=== PATIENT | female | born 1995 | race Caucasian/White ===

== ENCOUNTER → 2018-06-13 15:59 | Outpatient (CLI) | payer OTHER, SELFPAY ==
[2018-06-17 20:06] LABS: Egg, Whole <0.10 kU/L (Class 0); Garlic <0.10 kU/L (Class 0); Gluten <0.10 kU/L (Class 0); Yeast <0.10 kU/L (Class 0)
[2018-06-18 11:20] LABS: Banana <0.10 kU/L (Class 0); Wheat <0.10 kU/L (Class 0)
== END ==
PROVIDERS: Family Provider Family Medicine; PCP Family Medicine; Visit Provider Otolaryngology Otolaryngology/Facial Plastic Surgery
DX: T78.40XA Allergy, unspecified, initial encounter (principal)
CPT/HCPCS: 36415; 86003

== ENCOUNTER 2019-01-21 08:52 | Emergency (ER) | payer OTHER, SELFPAY ==
[2019-01-21 08:53] VITALS: BP 152/111; PULSE 89; RESP 18; TEMP 36.6; O2SAT 98; BMI 26.2
--- NOTE | 2019-01-21 09:12 | CT_ITS ---
STUDY: CT ABDOMEN AND PELVIS WITHOUT CONTRAST REASON FOR EXAM: Female, 23 years old. Right-sided pain RADIATION DOSAGE (If Supplied By Facility): CTDIvol = ( 8.42 ) mGy, DLP = ( 378.70 ) mGycm TECHNIQUE: Transaxial images were obtained from the dome of the diaphragm to the symphysis pubis without oral contrast, and without intravenous contrast. Sagittal and coronal images were reconstructed. Individualized dose optimization techniques were used for this CT. COMPARISON: None. FINDINGS: Lack of intravenous contrast limits evaluation of abdominal and pelvic organs. The visualized lung bases are unremarkable. The visualized portions of the heart are within normal limits. Normal liver. Normal gallbladder and extrahepatic biliary system. Normal spleen. Normal pancreas. Normal bilateral adrenal glands. Normal right kidney. Normal left kidney. Normal visualized stomach. Normal small intestine. Normal colon. The appendix is visualized and appears normal. Normal abdominal aorta. Normal inferior vena cava. Normal retroperitoneum. Normal urinary bladder. Normal abdominal wall. Normal osseous structures. CT/Abdomen/Pelvis without Cont IMPRESSION: Normal unenhanced CT of the abdomen and pelvis. Normal appendix. Electronically Signed: Jacob Perez, at 10:37 EDT Tel , Service support ,
--- NOTE | 2019-01-21 09:13 | ED.VISSUMM ---
- ER Visit Summary Date of Service: 01/21/19 Chief Complaint: Abdominal pain History of Present Illness: The patient is a 23 F who presents the emergency department with a right-sided abdominal pain. Patient states that she woke at 630 and went to get out of bed and noticed the pain on the right upper abdomen flank that radiated slightly inferior. She states the pain is been waxing and waning. No nausea vomiting. She had a normal bowel movement last night. No urinary symptoms. There is a family history of both gallstones and kidney stones. No fevers. Physical Examination: Afebrile vital signs are stable Gen: Well-nourished well-developed Head: Normocephalic atraumatic Eyes: Perrl EOMI ENT: TMs clear no rhinorrhea moist mucous membranes Neck: Supple no lymphadenopathy no JVD nontender CVS: Regular rate rhythm no murmurs normal S1-S2 Respiratory: No distress clear to auscultation bilaterally chest nontender Abdomen: Soft nontender nondistended normal bowel sounds no masses Back: Nontender Extremity: Nontender no edema Skin: Normal color no rash Neuro: alert orientated ?3 CN II-XII intact normal strength sensation reflexes gait cerebellar Psych: Normal affect normal mood Test Results: CBC CMP lipase normal. Urinalysis negative. test negative. CT down pelvis did not demonstrate any obvious cause for the patient's pain. Emergency Department Course and Treatment: IV was established labs are drawn. Patient received Toradol for pain. Patient will be discharged home with return instructions. Follow-up 24 hours if not improved. Impression: 1. Acute abdominal pain This note was generated with [employer] dictation software. It may contain incorrect words, spelling, and punctuation that were not noted in review of the chart prior to signing ED Disposition - Plan for ED Patient: Disposition: Home or Assisted Living Instructions: ED Abdominal Pain Unkn Cause Referrals: Kleber Sosa III, MD [Primary Care Provider] - (In 1 day if continued symptoms or return to emergency department)
[2019-01-21 09:33] LABS: Absolute Lymphocyte Count 1.45 X10^3/ul (0.83-4.51); Absolute Neutrophil Count 3.6 X10^3/uL (2.0-7.7); Basophil# 0.02 X10^3/uL; Basophil% 0.4 % (0-1); Eosinophil# 0.08 X10^3/uL; Eosinophils% 1.4 % (0-5); Hematocrit 41.3 % (37-47); Hemoglobin 13.4 g/dl (12.0-15.0); Lymphocyte # 1.45 X10^3/ul (4.0); Lymphocyte % 26.2 % (19-41); Mean Corp Hgb Conc 32.4 g/gl (32-36); Mean Corpuscular Hgb 27.9 pg (27.0-32.0); Mean Corpuscular Volume 85.9 fL (81-99); Mean Platelet Vol. 10.9 fl (6.2-12.0); Monocyte# 0.35 X10^3/uL; Monocyte% 6.3 % (0-10); Neutrophil # 3.62 X10^3/uL (2.7-7.7); Neutrophil % 65.5 % (47-70); Platelet Count 208 K/mm3 (150-450); RBC Distribution Width CV 12.6 % (11.6-14.6); RBC Distribution Width SD 39.5 fl (35.1-43.9); Red Blood Count 4.81 M/mm3 (4.2-5.4); White Blood Count 5.5 K/mm3 (4.4-11.0)
[2019-01-21 09:35] LABS: POSITIVE COUNT NO; POSITIVE DIFFERENTIAL NO; POSITIVE MORPHOLOGY NO
[2019-01-21] MEDS: Ketorolac 30 MG/ML Syringe IV (09:37)
[2019-01-21 09:46] LABS: Color, Urine Yellow (Yellow); Glucose, Dipstick Normal (Normal); Ketone-Dipstick 5 mg/dl (Negative); Leukocyte Esterase-Dipstick 25 /ul (Negative); Nitrite-Dipstick Negative (Negative); Occult Blood-Urine 10 /ul (Negative); Protein-Dipstick 15 mg/dl (Negative); Urine Bilirubin Dipstick Negative (Negative); Urine Clarity Sl. Cloudy (Clear); Urine Urobilinogen Normal (Normal)
[2019-01-21 09:48] LABS: Internal QC Validated? YES +Cl - CLEAR BKGD; Pregnancy, Urine Negative Negative
[2019-01-21 09:48] LABS: AST(SGOT) 12 U/L (15-37); Alanine Aminotransfer ALT/SGPT 17 U/L (13-56); Albumin, Serum 3.5 g/dL (3.2-5.0); Alkaline Phosphatase 43 U/L (45-117); Anion Gap 3 (5-15); BUN 11 mg/dL (7-18); BUN/Creat Ratio 11.7 RATIO (10-20); Calcium,Total 8.3 mg/dL (8.5-10.1); Chloride 110 mmol/L (98-107); Creatinine, Serum 0.94 mg/dL (0.55-1.02); EST Glomerular Filtration Rate 78 mL/min (>60); Est Glom Filt Rate - Afr Amer 95 mL/min (>60); Estimated Creatinine Clearance 81.06 ml/min; Globulin 3.6 g/dL (2.2-4.2); Glucose 85 mg/dL (74-106); Lipase 139 U/L (73-393); Potassium 3.9 mmol/L (3.5-5.1); Protein, Total 7.1 g/dL (6.4-8.2); Sodium Level 139 mmol/L (136-145)
[2019-01-21 09:51] LABS: Bacteria RARE /hpf (None Seen); Mucous, Urine RARE /hpf (<or=2+); Red Blood Cells-Urine 0-5 SEEN /hpf (0-5); Squamous Epithelial Cells - UA 0-5 SEEN /hpf (5-10); White Blood Cells 0-5 SEEN /hpf (0-5)
[2019-01-21 11:34] VITALS: BP 118/64; PULSE 64; RESP 14
== END 2019-01-21 11:37 | disposition home or self-care (01) ==
PROVIDERS: Emergency Provider Emergency Medicine; Family Provider Family Medicine; PCP Family Medicine
DX: R10.11 Right upper quadrant pain (principal); Z83.79 Family history of other diseases of the digestive system; Z84.2 Family history of other diseases of the genitourinary system
CPT/HCPCS: 74176; 80053; 81001; 81025; 83690; 85025; 96374; 99283; A4216

== ENCOUNTER → 2019-05-17 16:12 | Outpatient (CLI) | payer OTHER, SELFPAY ==
--- NOTE | 2019-05-17 10:10 | GANG_PTH ---
PATIENT: ANAMARIAFEBRUARY YOSELIN LOC: [facility] U#:[id number] AGE/SX: 30/F ROOM: RE05/17/[address]: Dr. Elia Hauser MD : 1995 BED: DIS: SPEC #: [id number] RECD: 05/17/19 15:27 STATUS: JUNITO ADALBERTO #: [id number] DONTRELL: 05/17/19 10:[address]: Elia Hauser DEPT: SURGICAL PATHOLOGY RECD BY: Chuckie Hardy ENTERED: 05/20/19 08:41 SP TYPE: GANGLION OTHR DR: Dr. Kleber Sosa III, MD [facility] Tissues: GANGLION CYST Procedures: Surgery Specimen Level III HEADER OPERATION: Excision ganglion cyst, right wrist PRE-OP DIAGNOSIS: Right wrist dorsal ganglion cyst TISSUE SUBMITTED: Ganglion cyst, right wrist MICROSCOPIC DIAGNOSIS Ganglion cyst right wrist, excision: Fragments of fibroadipose tissue, fibroconnective tissue and synovial tissue with reactive changes. See comment. JOE:lexii 05/21/19 COMMENT Changes consistent with ganglion cyst are not seen. MICROSCOPIC DESCRIPTION Slides are reviewed. GROSS DESCRIPTION Received is one container labeled with the patient's name and not further designated. The specimen consists of three pieces of weinberg-white soft tissue that in aggregate measure 1 x 0.5 x 0.3 cm. The entire specimen is submitted in one cassette. / JOE:lexii 05/20/19 TC:5 CPT: 90229
== END ==
PROVIDERS: Family Provider Family Medicine; PCP Family Medicine; Referring Provider Specialist; Visit Provider Specialist
DX: M67.431 Ganglion, right wrist (principal)
CPT/HCPCS: 88304

== ENCOUNTER → 2020-07-31 16:30 | Outpatient (CLI) | payer OTHER, SELFPAY | PROVIDERS: PCP Family Medicine; Referring Provider Nurse Practitioner Family; Visit Provider Nurse Practitioner Family | DX: Z20.828 Contact with and (suspected) exposure to other viral communicable diseases (principal) | CPT/HCPCS: 87635; U0003 ==

== ENCOUNTER 2021-02-25 06:03 | Outpatient (RCR) | payer OTHER, SELFPAY | END 2021-04-13 23:59 | LOC: IMMUN 06:03 | PROVIDERS: PCP Family Medicine; Referring Provider Family Medicine; Visit Provider Family Medicine | DX: Z23 Encounter for immunization (principal) | CPT/HCPCS: 0001A; 0002A; 91300 ==

== ENCOUNTER → 2021-08-02 14:16 | Outpatient (CLI) | payer OTHER, SELFPAY ==
--- NOTE | 2021-08-02 14:19 | RAD_ITS ---
STUDY: X-RAY - PELVIS REASON FOR EXAM: Female, 26 years old. INFLAMMATORY POLYARTHROPATHY TECHNIQUE: One view of the pelvis was obtained. COMPARISON: 01/21/2019 CT abdomen/pelvis FINDINGS: There is a non-specific bowel gas pattern. Normal visualized soft tissue structures. Normal bilateral iliac wings, sacroiliac joints and visualized sacrum. Normal visualized bilateral superior and inferior pubic rami. There is mild sclerosis and osteophytic spurring of the pubic symphysis. Normal ischial tuberosities. Normal visualized right femoral head. Normal right acetabulum. Normal right hip joint. Normal visualized left femoral head. Normal left acetabulum. Normal left hip joint. RAD/Pelvis 1 or 2 Views IMPRESSION: Findings suggest mild osteitis pubis, not significantly progressed compared to 01/21/2019 CT. Electronically Signed: Daniel Nolan MD at 22:13 EDT Tel , Service support ,
[2021-08-02 17:37] LABS: Absolute Lymphocyte Count 2.09 X10^3/uL (0.83-4.51); Absolute Neutrophil Count 6.5 X10^3/uL (2.0-7.7); Basophil# 0.04 X10^3/uL; Basophil% 0.4 % (0-1); Eosinophil# 0.12 X10^3/uL; Eosinophils% 1.3 % (0-5); Hematocrit 38.8 % (37-47); Hemoglobin 12.7 g/dL (12.0-15.0); Lymphocyte # 2.09 X10^3/ul (0.83-4.51); Lymphocyte % 22.8 % (19-41); Mean Corp Hgb Conc 32.7 g/dL (32-36); Mean Corpuscular Hgb 27.9 pg (27.0-32.0); Mean Corpuscular Volume 85.1 fL (81-99); Mean Platelet Vol. 10.9 fl (6.2-12.0); Monocyte# 0.38 X10^3/uL; Monocyte% 4.1 % (0-10); NRBC Flagged by Analyzer 0 % (0-5); Neutrophil # 6.52 X10^3/uL (2.7-7.7); Neutrophil % 71.1 % (47-70); Platelet Count 283 K/mm3 (150-450); RBC Distribution Width CV 13.1 % (11.6-14.6); RBC Distribution Width SD 39.7 fl (35.1-43.9); Red Blood Count 4.56 M/mm3 (4.2-5.4); White Blood Count 9.2 K/mm3 (4.4-11.0)
[2021-08-02 17:58] LABS: Erythrocyte Sedimentation Rate 7 mm/hr (0-30)
[2021-08-02 18:35] LABS: ALB/GLOB Ratio 0.8 RATIO (0.9-2.4); AST(SGOT) 11 U/L (15-37); Alanine Aminotransfer ALT/SGPT 19 U/L (13-56); Albumin, Serum 3.1 g/dL (3.2-5.0); Alkaline Phosphatase 57 U/L (45-117); Anion Gap 9 (5-15); BUN 9 mg/dL (7-18); BUN/Creat Ratio 11.6 RATIO (10-20); Calcium,Total 8.4 mg/dL (8.5-10.1); Chloride 104 mmol/L (98-107); Creatinine, Serum 0.78 mg/dL (0.55-1.02); EST Glomerular Filtration Rate 96 mL/min (>60); Est Glom Filt Rate - Afr Amer 116 mL/min (>60); Glucose 102 mg/dL (74-106); Potassium 3.4 mmol/L (3.5-5.1); Protein, Total 7.1 g/dL (6.4-8.2); Rheumatoid Factor < 10.0 IU/mL (<15); Sodium Level 139 mmol/L (136-145)
[2021-08-03 09:18] LABS: Hepatitis B Surface Antibody Reactive; Hepatitis B Surface Antigen Non-Reactive (Nonreactive); Hepatitis C Antibody Non-Reactive (Nonreactive)
[2021-08-04 14:53] LABS: ANTINUCLEAR ANTIBODIES DIRECT Negative (Negative)
[2021-08-10 16:28] LABS: CCP IgG Antibodies 4 units (0-19); HLA B27 Negative (.)
== END ==
PROVIDERS: PCP Family Medicine; Referring Provider Internal Medicine Rheumatology; Visit Provider Internal Medicine Rheumatology
DX: M06.4 Inflammatory polyarthropathy (principal)
CPT/HCPCS: 36415; 72170; 80053; 81374; 85025; 85652; 86038; 86140; 86200; 86431; 86706; 86803; 87340

== ENCOUNTER → 2021-08-11 07:17 | Outpatient (CLI) | payer OTHER, SELFPAY | PROVIDERS: PCP Family Medicine; Referring Provider Ophthalmology; Visit Provider Ophthalmology | DX: H04.123 Dry eye syndrome of bilateral lacrimal glands (principal) | CPT/HCPCS: 36415 ==

== ENCOUNTER 2022-01-11 06:31 | Outpatient (CLI) | payer OTHER, SELFPAY | END 2022-01-11 23:59 | disposition home or self-care (01) | LOC: LAB 06:33 | PROVIDERS: Referring Provider Ophthalmology; Visit Provider Ophthalmology | DX: H04.123 Dry eye syndrome of bilateral lacrimal glands (principal) | CPT/HCPCS: 36415 ==

== ENCOUNTER 2022-06-28 06:43 | Outpatient (CLI) | payer BC, SELFPAY | END 2022-06-28 23:59 | disposition home or self-care (01) | LOC: LAB 06:45 | PROVIDERS: Referring Provider Ophthalmology; Visit Provider Ophthalmology | DX: H04.123 Dry eye syndrome of bilateral lacrimal glands (principal) | CPT/HCPCS: 36415 ==

== ENCOUNTER 2022-09-24 05:56 | Emergency (ER) | payer BC, SELFPAY ==
[2022-09-24 05:57] VITALS: BP 135/91; BP 136/94; PULSE 111; PULSE 120; RESP 16; TEMP 36.1; O2SAT 96; O2SAT 97; BMI 33.5
--- NOTE | 2022-09-24 06:02 | EDS_ITS ---
HPI HPI - GI History of Present Illness Chief Complaint: Nausea/Vomiting Informant: patient Abdominal Pain/Flank Pain Onset: Yesterday Context: Sudden Onset Timing: Continuous Quality: - (Nauseated) Location: Epigastric, RUQ and LUQ Worsened by: Food Relieved by: Nothing Nausea/Vomiting/Emesis GI Symptom: Positive for Nausea and Vomiting Onset: Yesterday Quality: Positive for Nonbilious; Negative for Blood streaks, Coffee ground or Hematemesis Diarrhea/Melena/Hematochezia GI Symptom: Negative for Diarrhea, Melena or Hematochezia Associated Symptoms Associated Symptoms: Negative for Dysuria, Frequency or Hematuria Narrative Narrative: Patient presents with nausea and vomiting that began last evening. Patient states it began rather suddenly. Patient states she is unable to keep anything down. Patient states that she has sensation of nausea across her abdomen. Patient admits to a burning sensation in her throat. Patient states that it is worse anytime she tries to eat or drink anything. Patient states nothing seems to be helping with it. Patient denies any hematemesis or coffee-ground emesis. Patient denies any diarrhea, melena, or hematochezia. Patient denies any urinary complaints. PFSH PFSH Medical History no medical history no medical history Home Medications Control 1 tab PO DAILY 01/21/19 [History Last Taken Unknown] ondansetron 4 mg disintegrating tablet 4 mg PO Q8H PRN PRN Nausea #10 tabs 09/24/22 [Rx Last Taken Unknown] Allergy/AdvReac Type Severity Reaction Status Date / Time Sulfa (Sulfonamide Allergy Rash Verified 01/21/19 08:55 Antibiotics) Surgical History (Updated 09/24/22 @ 06:[address] Francesco Mcmahan DO) H/O excision of ganglion cyst Social History Smoking Status: Never smoker ROS ROS ED Constitutional Constitutional ED: Reports chills and subjective; Denies fever(s) Eyes Eyes: Denies blurry vision or change in vision ENT ENT ED: Reports rhinorrhea and sore throat Cardiovascular Cardiovascular: Denies chest pain or palpitations Respiratory/Chest Respiratory/Chest: Denies cough or dyspnea Gastrointestinal Gastrointestinal: Reports nausea and vomiting; Denies diarrhea or melena Genitourinary Genitourinary ED: Denies dysuria or hematuria Musculoskeletal Musculoskeletal: Denies back pain or neck pain Integumentary Denies abscess or rash Neurologic Neurologic: Denies headache(s) or weakness Allergic/Immunologic Allergic/Immunologic ED: Denies mouth swelling or urticaria EXAM Physical Exam Const Vital Signs: 09/24/22 05:57 09/24/22 05:57 09/24/22 06:11 Temperature 97.0 F L 97.0 F L Temperature Source Temporal Temporal Pulse Rate 120 H 111 H Pulse Rate [Lying] 95 Pulse Rate [Sitting (for 1 minute prior to obtaining)] 100 Pulse Rate [Standing (for 1 minute prior to obtaining)] 110 H Respiratory Rate 16 16 Blood Pressure 136/94 H 135/91 H Blood Pressure [Lying] 127/62 H Blood Pressure [Sitting (for 1 minute prior to obtaining)] 126/79 H Blood Pressure [Standing (for 1 minute prior to obtaining)] 121/84 H Blood Pressure Mean 108 105 Blood Pressure Mean [Lying] 83 Blood Pressure Mean [Sitting (for 1 minute prior to obtaining)] 94 Blood Pressure Mean [Standing (for 1 minute prior to obtaining)] 96 Pulse Ox 97 96 Oxygen Delivery Method Room Air Room Air Positive well nourished and well developed General Appearance ED: well developed HEENT Reports moist mucous membranes Neck supple and no JVD Resp normal respiratory effort and clear to auscultation bilaterally Cardio regular rhythm and no murmurs Rate: tachycardic GI normal to inspection, nondistended, normoactive bowel sounds and non-tender Palpation: soft Extremity normal to inspection General Extremety ED: Negative for edema or tenderness General Extremity: Negative for edema Neuro oriented x3, CN's II-XII intact bilaterally and no sensory deficits noted Sensorium / Orientation: alert Motor Exam: strength 5/5 throughout Psych mental status grossly normal Skin no rashes or lesions noted MDM MDM MDM Narrative Medical decision making narrative: Patient was given IV fluids and Zofran here. CBC shows a leukocytosis of 15.8. Comprehensive metabolic profile was within normal limits. Lipase was normal. Serum hCG was negative. Because of the leukocytosis, CT scan of the abdomen and pelvis was obtained. There is evidence of cholelithiasis. There is no acute process noted. There are some mesenteric lymph nodes noted. This was interpreted by the radiologist and reviewed by myself. Urinalysis was ordered and is within normal limits. Patient has had no further emesis here in the e mergency department. Patient was given a p.o. challenge. If she is able to tolerate this, I feel the patient can be discharged home. Patient was given a prescription for Zofran. Patient was instructed to start with small amounts of fluids more frequently. Patient was instructed to advance her diet as tolerated. Patient was instructed to follow-up with her primary care physician in 5 to 7 days. Patient and family understood and were agreeable with the plan. All questions were answered. Lab Data Attestation: I reviewed the patient's lab results. Labs: Laboratory Results - last 24 hr 09/24/22 09/24/22 09/24/22 06:05 06:05 06:05 WBC 15.8 H RBC 5.00 Hgb 13.1 Hct 40.4 MCV 80.8 L MCH 26.2 L MCHC 32.4 RDW Std Deviation 37.7 RDW Coeff of Casie 13.2 Plt Count 283 MPV 10.3 Immature Gran % (Auto) 0.400 Neut % (Auto) 91.7 H Lymph % (Auto) 4.2 L [place] % (Auto) 3.3 Eos % (Auto) 0.1 Baso % (Auto) 0.3 Absolute Neuts (auto) 14.5 H Absolute Lymphs (auto) 0.66 L Nucleated RBC % 0 Sodium 137 Potassium 3.9 Chloride 106 Carbon Dioxide 23.0 Anion Gap 8 BUN 13 Creatinine 0.79 Estim Creat Clear Calc 93.19 Est GFR (MDRD) Af Amer 113 Est GFR (MDRD) Non-Af 93 BUN/Creatinine Ratio 16.5 Glucose 136 H Calcium 8.3 L Total Bilirubin 0.30 AST 13 L ALT 18 Alkaline Phosphatase 58 Total Protein 7.0 Albumin 3.1 L Globulin 3.9 Albumin/Globulin Ratio 0.8 L Lipase 131 Serum , Qual NEGATIVE Urine Color Urine Clarity Urine pH Ur Specific [place] Urine Protein Urine Glucose (UA) Urine Ketones Urine Occult Blood Urine Nitrite Urine Bilirubin Urine Urobilinogen Ur Leukocyte Esterase Urine RBC Urine WBC Ur Squamous Epith Cells Urine Bacteria Urine Mucus 09/24/22 07:10 WBC RBC Hgb Hct MCV MCH MCHC RDW Std Deviation RDW Coeff of Casie Plt Count MPV Immature Gran % (Auto) Neut % (Auto) Lymph % (Auto) [place] % (Auto) Eos % (Auto) Baso % (Auto) Absolute Neuts (auto) Absolute Lymphs (auto) Nucleated RBC % Sodium Potassium Chloride Carbon Dioxide Anion Gap BUN Creatinine Estim Creat Clear Calc Est GFR (MDRD) Af Amer Est GFR (MDRD) Non-Af BUN/Creatinine Ratio Glucose Calcium Total Bilirubin AST ALT Alkaline Phosphatase Total Protein Albumin Globulin Albumin/Globulin Ratio Lipase Serum , Qual Urine Color Yellow Urine Clarity Clear Urine pH 6.5 Ur Specific [place] 1.010 Urine Protein Negative Urine Glucose (UA) Normal Urine Ketones Negative Urine Occult Blood Negative Urine Nitrite Negative Urine Bilirubin Negative Urine Urobilinogen Normal Ur Leukocyte Esterase 25 H Urine RBC 0 SEEN Urine WBC 0 SEEN Ur Squamous Epith Cells 0-5 SEEN Urine Bacteria 0 SEEN Urine Mucus 0 SEEN Radiography Diagnostic Testing: Clinical Impression(s) from Imaging Studies Abdomen/Pelvis CT 09/24/22 06:36 IMPRESSION: Cholelithiasis. Ultrasound correlation may be helpful to evaluate for acute cholecystitis if clinically indicated. Prominent mesenteric lymph nodes nonspecific and may be reactive. Electronically Signed: Jerri Harris MD at 7:07 EST , Discharge Plan Triage Chief Complaint: Nausea/Vomiting ED Provider: Francesco Mcmahan Dx/Rx/DC Orders Clinical Impression: Nausea and vomiting, Cholelithiasis Instructions: ED Vomiting (Adult) Prescriptions: New ondansetron [ondansetron] 4 mg tablet,disintegrating 4 mg PO Q8H PRN PRN (Reason: Nausea) Qty: 10 0RF No Action Control 1 tab PO DAILY Primary Care Provider: David Mcqueen Referrals: David Mcqueen MD [Primary Care Provider] - 5-7 Days Care Physician,No Primary [Non-Staff] - Disposition Disposition: Home, Self Care
[2022-09-24] MEDS: 0.9% Normal Saline 1,000 ML 1000 ML IV (06:08)
[2022-09-24] MEDS: Ondansetron 4 MG/2 ML Vial IV (06:08)
[2022-09-24 06:11] VITALS: BP 121/84; BP 126/79; BP 127/62; PULSE 100; PULSE 110; PULSE 95
[2022-09-24 06:13] LABS: Absolute Lymphocyte Count 0.66 X10^3/uL (0.83-4.51); Absolute Neutrophil Count 14.5 X10^3/uL (2.0-7.7); Basophil# 0.04 X10^3/uL; Basophil% 0.3 % (0-1); Eosinophil# 0.01 X10^3/uL; Eosinophils% 0.1 % (0-5); Hematocrit 40.4 % (37-47); Hemoglobin 13.1 g/dL (12.0-15.0); Lymphocyte # 0.66 X10^3/ul (0.83-4.51); Lymphocyte % 4.2 % (19-41); Mean Corp Hgb Conc 32.4 g/dL (32-36); Mean Corpuscular Hgb 26.2 pg (27.0-32.0); Mean Corpuscular Volume 80.8 fL (81-99); Mean Platelet Vol. 10.3 fl (6.2-12.0); Monocyte# 0.53 X10^3/uL; Monocyte% 3.3 % (0-10); NRBC Flagged by Analyzer 0 % (0-5); Neutrophil # 14.53 X10^3/uL (2.7-7.7); Neutrophil % 91.7 % (47-70); Platelet Count 283 K/mm3 (150-450); RBC Distribution Width CV 13.2 % (11.6-14.6); RBC Distribution Width SD 37.7 fl (35.1-43.9); White Blood Count 15.8 K/mm3 (4.4-11.0)
[2022-09-24 06:30] LABS: Internal QC Validated? YES +Cl - CLEAR BKGD; Pregnancy, Serum, hCG Quali. NEGATIVE Negative
[2022-09-24 06:33] LABS: ALB/GLOB Ratio 0.8 RATIO (0.9-2.4); AST(SGOT) 13 U/L (15-37); Alanine Aminotransfer ALT/SGPT 18 U/L (13-56); Albumin, Serum 3.1 g/dL (3.2-5.0); Alkaline Phosphatase 58 U/L (45-117); Anion Gap 8 (5-15); BUN 13 mg/dL (7-18); BUN/Creat Ratio 16.5 RATIO (10-20); Calcium,Total 8.3 mg/dL (8.5-10.1); Chloride 106 mmol/L (98-107); Creatinine, Serum 0.79 mg/dL (0.55-1.02); EST Glomerular Filtration Rate 93 mL/min (>60); Est Glom Filt Rate - Afr Amer 113 mL/min (>60); Estimated Creatinine Clearance 93.19 ml/min; Globulin 3.9 g/dL (2.2-4.2); Glucose 136 mg/dL (74-106); Lipase 131 U/L (73-393); Potassium 3.9 mmol/L (3.5-5.1); Sodium Level 137 mmol/L (136-145)
--- NOTE | 2022-09-24 06:36 | CT_ITS ---
STUDY: CT ABDOMEN AND PELVIS WITHOUT CONTRAST REASON FOR EXAM: Female, 27 years old. Abdominal pain WITH NAUSEA AND VOMITING X TODAY RADIATION DOSAGE (If Supplied By Facility): CTDIvol = ( 10.91 ) mGy, DLP = ( 531.41 ) mGycm TECHNIQUE: Transaxial images were obtained from the dome of the diaphragm to the symphysis pubis without oral contrast, and without intravenous contrast. Sagittal and coronal images were reconstructed. Individualized dose optimization techniques were used for this CT. COMPARISON: CT abdomen and pelvis 01/21/2019 FINDINGS: LOWER CHEST: Included lung bases are clear. LIVER: Grossly unremarkable. GALLBLADDER AND BILIARY TREE: Gallstones with gallbladder. PANCREAS: Grossly unremarkable. SPLEEN: Grossly unremarkable. Adjacent nodules likely splenules. ADRENAL GLANDS: Grossly unremarkable. KIDNEYS AND URETERS: No calculi demonstrated. No hydronephrosis. PERITONEUM: No free air. No free fluid. BOWEL: No bowel obstruction. Several prominent lymph nodes in the mesentery. APPENDIX: Visualized and unremarkable. No evidence of acute appendicitis. VESSELS: Abdominal aorta is normal caliber. REPRODUCTIVE ORGANS: Grossly unremarkable URINARY BLADDER: Grossly unremarkable. ABDOMINAL WALL: Unremarkable. BONES: No acute abnormalities. CT/Abdomen/Pelvis without Cont IMPRESSION: Cholelithiasis. Ultrasound correlation may be helpful to evaluate for acute cholecystitis if clinically indicated. Prominent mesenteric lymph nodes nonspecific and may be reactive. Electronically Signed: Jerri Harris MD at 7:07 [facility] ,
[2022-09-24 07:17] LABS: Bacteria 0 SEEN /hpf (None Seen); Mucous, Urine 0 SEEN /hpf (<or=2+); Red Blood Cells-Urine 0 SEEN /hpf (0-5); White Blood Cells 0 SEEN /hpf (0-5)
[2022-09-24 07:18] LABS: Color, Urine Yellow (Yellow); Glucose, Dipstick Normal (Normal); Ketone-Dipstick Negative (Negative); Leukocyte Esterase-Dipstick 25 /ul (Negative); Nitrite-Dipstick Negative (Negative); Occult Blood-Urine Negative /ul (Negative); Protein-Dipstick Negative (Negative); Urine Bilirubin Dipstick Negative (Negative); Urine Clarity Clear (Clear); Urine Urobilinogen Normal (Normal); Urine pH 6.5 (5.0 - 8.0)
[2022-09-24 07:25] LABS: Squamous Epithelial Cells - UA 0-5 SEEN /hpf (5-10)
== END 2022-09-24 07:51 | disposition home or self-care (01) ==
PROVIDERS: Emergency Provider Emergency Medicine; PCP Family Medicine; Visit Provider Emergency Medicine
DX: K80.20 Calculus of gallbladder without cholecystitis without obstruction (principal); R11.10 Vomiting, unspecified
CPT/HCPCS: 74176; 80053; 81001; 83690; 84703; 85025; 96361; 96374; 99284; J7030; A4216; J2405

== ENCOUNTER → 2022-12-15 | Outpatient (CLI) | payer BC, SELFPAY | END | disposition home or self-care (01) | PROVIDERS: PCP Family Medicine; Visit Provider Ophthalmology | DX: H04.123 Dry eye syndrome of bilateral lacrimal glands (principal) | CPT/HCPCS: 36415 ==

== ENCOUNTER → 2023-05-15 | Outpatient (CLI) | payer BC, SELFPAY | END | disposition home or self-care (01) | LOC: LAB 06:35 | PROVIDERS: Referring Provider Ophthalmology; Visit Provider Ophthalmology | DX: Z79.899 Other long term (current) drug therapy (principal) | CPT/HCPCS: 36415 ==

== ENCOUNTER → 2023-11-21 | Outpatient (CLI) | payer BC, SELFPAY ==
--- OUTSIDE RECORDS SUMMARY | 2023-11-21 06:54 | XMS RPT_ITS | CCD ---
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 Name Role Phone Unavailable Primary Care Provider ALLAN Roberto Attending Unavailable ALLAN CARVALHO Admitting Unavailable Unavailable Primary Care Provider MICKEY Hoskins Attending Unavailable ALLAN CARVALHO Referring Unavailable ALLAN CARVALHO Attending Unavailable ALLAN CARVALHO Attending Unavailable CYNTHIA POP Referring Unavailable Allergies Allergy Classification Reported Allergen(s) Allergy Type Date of Onset Reaction(s) Facility (8 sources) Erythromycin; Translations: [ERYTHROMYCIN] Drug Allergy 6 Swelling [facility] Work Phone: (8 sources) Seasonal allergy; Translations: [SEASONAL ALLERGIES] Allergy to substance 8 Other: See Comments [facility] (8 sources) Sulfonamides (Antibiotic); Translations: [SULFA (SULFONAMIDE ANTIBIOTICS)] Propensity to adverse reactions 5 [facility] Work Phone: Medications Current Medications Medication Drug Class(es) Dates Sig (Normalized) Sig (Original) aluminum chloride 200 mg/ml topical solution (3 sources) Start: 05-20-2021 End: 10-07-2022 aluminum chloride (DRYSOL) 20 % external solution Apply to affected area daily at bedtime. Until improvement then use 1-2 times per week. 40 mL 1 05/20/2021 10/07/2022 Discontinued (Other) Completed/Discontinued Medications Medication Drug Class(es) Dates Sig (Normalized) Sig (Original) calcium chloride 0.0014 meq/ml / potassium chloride 0.004 meq/ml / sodium chloride 0.103 meq/ml / sodium lactate 0.028 meq/ml injectable solution (1 source) Start: 11-23-2022 inject 5-30 mL intravenously every hour Ringer's solution,lactated (LACTATED RINGERS) iv infusion Inject 5-30 mL/hr intravenously continuous. 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] Onset: 04-10-2018 04-10-2018 Chronic Other aftercare (1 source) Follow-up status; Translations: [Encounter for other specified aftercare] Episodic Other inflammatory condition of skin (6 sources) Perioral dermatitis; Translations: [Perioral dermatitis] Onset: 01-06-2021 01-06-2021 Chronic Other upper respiratory disease (6 sources) Allergic rhinitis due to pollen; Translations: [Allergic rhinitis due to pollen] Onset: 07-12-2018 07-12-2018 Chronic Other upper respiratory disease (6 sources) Allergic rhinitis; Translations: [Other allergic rhinitis] Onset: 07-12-2018 07-12-2018 Chronic Other upper respiratory infections (1 source) Pharyngitis; Translations: [Acute pharyngitis, unspecified] Episodic Viral infection (1 source) Viral disease; Translations: [Viral infection, unspecified] Episodic Past or Other Problems Problem Classification Problem Date Documented Date Episodic/Chronic Allergic reactions (6 sources) Chronic urticaria; Translations: [Other urticaria] Onset: 07-12-2018 07-12-2018 Episodic Biliary tract disease (2 sources) Calculus of gallbladder with acute and chronic cholecystitis without obstruction; Translations: [Calculus of gallbladder with acute on chronic cholecystitis without obstruction] Onset: 10-17-2022 Episodic Nonmalignant breast conditions (4 sources) Lump in upper outer quadrant of right breast; Translations: [Unspecified lump in the right breast, upper outer quadrant] Onset: 10-17-2022 Episodic Other connective tissue disease (6 sources) Ganglion cyst of right wrist; Translations: [Ganglion, right wrist] Onset: 04-10-2018 04-10-2018 Episodic Other skin disorders (4 sources) Localized swelling, mass and lump, right upper limb; Translations: [Localized superficial swelling, mass, or lump] Onset: 10-17-2022 Episodic Residual codes; unclassified (6 sources) Family history of diabetes mellitus; Translations: [Family history of diabetes mellitus] Onset: 04-13-2018 04-13-2018 Episodic Results Test Name Value Interpretation Reference Range Facil ity Vital Signs Date Time Vital Sign Value Performing Clinician Faci lity 12-02-2022 10:20-0500 Body temperature 97.9 [degF] Allan Carvalho MD Work Phone: [facility] 12-02-2022 10:20-0500 Diastolic blood pressure 80 mm[Hg] Allan Carvalho MD Work Phone: [facility] 12-02-2022 10:20-0500 Heart rate 112 /min Allan Carvalho MD Work Phone: [facility] 12-02-2022 10:20-0500 SaO2% (BldA) [Mass fraction] 98 % Allan Carvalho MD Work Phone: [facility] 12-02-2022 10:20-0500 Systolic blood pressure 126 mm[Hg] Allan Carvalho MD Work Phone: [facility] 10-07-2022 07:58-0500 Body height 162.6 cm Cynthia Pop APRN.APPEALS AND GENERALIST CLERK Work Phone: [facility] 10-07-2022 07:58-0500 Body weight 87.54 kg Cynthia Pop APRN.APPEALS AND GENERALIST CLERK Work Phone: [facility] 10-07-2022 07:58-0500 Diastolic blood pressure 78 mm[Hg] Cynthia Pop APRN.APPEALS AND GENERALIST CLERK Work Phone: [facility] 10-07-2022 07:58-0500 Systolic blood pressure 122 mm[Hg] Cynthia Pop APRN.APPEALS AND GENERALIST CLERK Work Phone: [facility] 05-08-2022 09:02-0400 Body temperature 98.6 [degF] David Hernandez APRN.APPEALS AND GENERALIST CLERK Work Phone: [facility] 05-08-2022 09:02-0400 Body weight 85.91 kg David Hernandez APRN.APPEALS AND GENERALIST CLERK Work Phone: [facility] 05-08-2022 09:02-0400 Diastolic blood pressure 94 mm[Hg] David Hernandez APRN.APPEALS AND GENERALIST CLERK Work Phone: [facility] 05-08-2022 09:02-0400 Heart rate 100 /min David Hernandez APRN.APPEALS AND GENERALIST CLERK Work Phone: [facility] 05-08-2022 09:02-0400 Respiratory rate 21 /min David Hernandez APRN.APPEALS AND GENERALIST CLERK Work Phone: [facility] 05-08-2022 09:02-0400 SaO2% (BldA) [Mass fraction] 99 % David Hernandez APRN.APPEALS AND GENERALIST CLERK Work Phone: [facility] 05-08-2022 09:02-0400 Systolic blood pressure 120 mm[Hg] David Hernandez APRN.APPEALS AND GENERALIST CLERK Work Phone: [facility] Encounters Encounter Date Encounter Type Care Provider Facility Start: 10-04-2023 End: 10-04-2023 ambulatory MICKEY ALVARADO Facility:[facility] Start: 12-02-2022 End: 12-02-2022 ambulatory ALLAN CARVALHO Facility:[facility] Start: 12-02-2022 End: 12-02-2022 Patient encounter procedure Allan Carvalho MD Work Phone: General Surgery Procedures Date Procedure Procedure Detail Performing Clinician Start: 10-11-2022 Us breast uni real t raymond with image limited Cynthia Pop APRN.APPEALS AND GENERALIST CLERK Work Phone: Start: 05-08-2022 STREP A MOLECULAR (POC) David Hernandez APRN.APPEALS AND GENERALIST CLERK Work Phone: Start: 12-17-2020 Adult depression screening assessment David Hernandez APRN.JHON Work Phone: Plan of Treatment Date Care Activity Detail Author Start: 05-03-2026 Urine microalbumin profile [facility] Start: 09-01-2023 PAP TESTING PAP TESTING [facility] Start: 07-07-2023 Covid-19 Vaccine () Covid-19 Vaccine ( season) [facility] Start: 07-07-2023 Influenza vaccination Influenza Vaccine (#1) [facility] Start: 11-06-2022 DEPRESSION ASSESSMENT DEPRESSION ASSESSMENT [facility] Start: 07-07-2022 Influenza vaccination INFLUENZA (#1) [facility] Start: 12-17-2021 Adult depression screening assessment DEPRESSION SCREENING [facility] Start: 11-06-2021 DEPRESSION ASSESSMENT DEPRESSION ASSESSMENT [facility] Start: 08-18-2021 COVID-19 VACCINE (3 - Booster for Pfizer series) COVID-19 VACCINE (3 - Booster for Pfizer series) [facility] Start: 05-13-2021 COVID-19 VACCINE (3 - Booster for Pfizer series) COVID-19 VACCINE (3 - Booster for Pfizer series) [facility] Start: 02-26-2014 HIV SCREENING HIV SCREENING [facility] Start: 02-26-2010 PEDS TO ADULT TRANSITION ANNUAL ASSESSMENT PEDS TO ADULT TRANSITION ANNUAL ASSESSMENT [facility] Start: 2008 PEDS TO ADULT TRANSITION INITIAL DISCUSSION PEDS TO ADULT TRANSITION INITIAL DISCUSSION [facility] Start: 02-26-2007 HPV VACCINE (1 - 2-dose series) HPV VACCINE (1 - 2-dose series) [facility] End: 11-06-2023 Diagnostic mammography computer-aided detcj uni [facility] Radiology Routine Mass of upper outer quadrant of right breast Axillary lump, right 1 Occurrences starting 10/07/2022 until 11/06/2023 [facility] Work Phone: Immunizations Immunization Date Immunization Notes Care Provider Shoshana dill 05-03-2016 tetanus toxoid, reduced diphtheria toxoid, and acellular pertussis vaccine, adsorbed David Hernandez MONTESSORI TEACHER.APPEALS AND GENERALIST CLERK Work Phone: [facility] Work Phone: 02-28-2001 varicella virus vaccine David Hernandez MONTESSORI TEACHER.APPEALS AND GENERALIST CLERK Work Phone: [facility] 02-28-2000 diphtheria, tetanus toxoids and acellular pertussis vaccine David Hernandez MONTESSORI TEACHER.APPEALS AND GENERALIST CLERK Work Phone: [facility] 02-28-2000 measles, mumps and rubella virus vaccine David Pendlebury MONTESSORI TEACHER.APPEALS AND GENERALIST CLERK Work Phone: [facility] 02-28-2000 poliovirus vaccine, inactivated David Pendlebury MONTESSORI TEACHER.APPEALS AND GENERALIST CLERK Work Phone: [facility] 06-13-1997 diphtheria, tetanus toxoids and acellular pertussis vaccine David Pendlebury MONTESSORI TEACHER.APPEALS AND GENERALIST CLERK Work Phone: [facility] 06-13-1997 haemophilus influenz ae type b vaccine, HbOC conjugate David Pendlebury MONTESSORI TEACHER.APPEALS AND GENERALIST CLERK Work Phone: [facility] 02-28-1997 measles, mumps and rubella virus vaccine David Pendlebury MONTESSORI TEACHER.APPEALS AND GENERALIST CLERK Work Phone: [facility] 1996 diphtheria, tetanus toxoids and acellular pertussis vaccine David Pendlebury MONTESSORI TEACHER.APPEALS AND GENERALIST CLERK Work Phone: [facility] 1996 haemophilus influenz ae type b vaccine, HbOC conjugate David Pendlebury MONTESSORI TEACHER.APPEALS AND GENERALIST CLERK Work Phone: [facility] 1996 hepatitis B vaccine, pediatric or pediatric/adolescent dosage David Pendlebury MONTESSORI TEACHER.APPEALS AND GENERALIST CLERK Work Phone: [facility] 1996 poliovirus vaccine, inactivated David Pendlebury MONTESSORI TEACHER.APPEALS AND GENERALIST CLERK Work Phone: [facility] 1996 diphtheria, tetanus toxoids and acellular pertussis vaccine David Pendlebury MONTESSORI TEACHER.APPEALS AND GENERALIST CLERK Work Phone: [facility] 1996 haemophilus influenz ae type b vaccine, HbOC conjugate David Pendlebury MONTESSORI TEACHER.APPEALS AND GENERALIST CLERK Work Phone: [facility] 1996 poliovirus vaccine, inactivated David Pendlebury MONTESSORI TEACHER.APPEALS AND GENERALIST CLERK Work Phone: [facility] 1996 diphtheria, tetanus toxoids and acellular pertussis vaccine David Pendlebury MONTESSORI TEACHER.APPEALS AND GENERALIST CLERK Work Phone: [facility] 1996 haemophilus influenz ae type b vaccine, HbOC conjugate David Morleyhazel MONTESSORI TEACHER.APPEALS AND GENERALIST CLERK Work Phone: [facility] 1996 hepatitis B vaccine, pediatric or pediatric/adolescent dosage David Morleyhazel MONTESSORI TEACHER.APPEALS AND GENERALIST CLERK Work Phone: [facility] 1996 poliovirus vaccine, inactivated Davidheather Hernandez MONTESSORI TEACHER.APPEALS AND GENERALIST CLERK Work Phone: [facility] 1996 hepatitis B vaccine, pediatric or pediatric/adolescent dosage David Morleyhazel MONTESSORI TEACHER.APPEALS AND GENERALIST CLERK Work Phone: [facility] Payers Date Payer Category Payer Unknown SHAKILA CASTAÑEDA SS PPO [id number] 2022-Present [phone] [address] [place] [address] PPO [id number] 2022 Unknown SHAKILA ENAMORADOE SS PPO [id number] 2022-Present [phone] [address] [place] [address] PPO [id number] 2022 Unknown [id number] Social History Date Type Detail Facility Start: 09-21-2017 Tobacco smoking status NHIS Never smoked tobacco [facility] Work Phone: Start: 05-08-2022 End: 10-07-2022 Alcohol intake Current non-drinker of alcohol (finding) [facility] Start: 09-01-2020 End: 12-18-2020 History SDOH Alcohol Frequency 2 [facility] Start: 07-31-2020 End: 09-01-2020 History SDOH Alcohol Std Drinks 1 [facility] Start: 11-05-2019 End: 09-01-2020 History SDOH Social Connections Phone 5 [facility] Start: 07-31-2020 History SDOH Social Connections Get Together 4 [facility] Start: 07-31-2020 History SDOH Social Connections Meetings 98 [facility] Start: 11-05-2019 History SDOH Social Connections Living 7 [facility] Start: 11-04-2019 End: 07-31-2020 History SDOH Physical Activity MPS 12 [facility] Start: 1995 Sex Assigned At Female [facility] Start: 09-21-2017 Tobacco use and exposure Smokeless tobacco non-user [facility] Work Phone: Start: 09-27-2022 End: 10-07-2022 Exposure to SARS-CoV-2 (event) Not sure [facility] Work Phone: Start: 07-31-2020 End: 10-12-2020 History of Social function [facility] Start: 07-31-2020 End: 10-12-2020 Social connection and isolation panel [facility] Frequency of Communication with Friends and Family Not on file [facility] How often to you hav e a drink containing alcohol? Monthly or less [facility] Work Phone: How many standard dr inks containing alcohol do you have on a typical day? 1 or 2 [facility] Work Phone: How often do you hav e 6 or more drinks on 1 occasion? Never [facility] Work Phone: Do you feel stress - tense, restless, nervous, or anxious, or unable to sleep at night because your mind is troubled all the time - these days [OSQ] Only a little [facility] (I/We) worried wheth er (my/our) food would run out before (I/we) got money to buy more. Never true [facility] Work Phone: In the past 12 month s, was there a time when you were not able to pay the mortgage or rent on time? No [facility] Start: 06-27-2019 Gender identity Identifies as female gender (finding) [facility] Start: 08-31-2020 Sexual orientation Heterosexual (finding) [facility] Clinical Notes 05-04-2011 to 10-04-2023 Allan Carvalho MD - 12/02/2022 10:30 AM EST Note Date & Type Note Facility 10-04-2023 Note HNO ID: [id number] Author: Mickey Alvarado MD Service: ? Author Type: Physician Type: Progress Notes Filed: 10/04/2023 9:17 AM Note Text: Eliana is a 28 year old who presents for an annual gynecologic exam without complaints. Menses: cycles every 28 days and 4 days of flow. Contraception: combined hormonal contraceptives HPV vaccine: No Last Pap: 09/07/2020 normal HPV: N/A History of abnormal pap: No Last mammogram: never Sexually active: Yes OB History T0 L0 SAB0 IAB0 Ectopic0 Multiple0 Live Births0 [employer] History LMP: 09/11/2023 (Exact Date), Having periods Age at Menarche: Age at First : Age at Menopause: [employer] History Comments: Sexual Activity: Yes; Male Contraception: Pill PAST MEDICAL HISTORY Diagnosis Date IBS (irritable bowel syndrome) PAST SURGICAL HISTORY Procedure Laterality Date EXCISION GANGLION WRIST DORSAL/VOLAR PRIMARY Right 05/17/2019 LAPAROSCOPIC CHOLECYSTECTOMY 11/23/2022 PAST SURGICAL HISTORY OF wisdom teeth removed FAMILY HISTORY Problem Relation Age of Onset Hypertension Mother Diabetes Mother Heart Father Cancer Maternal Grandmother renal cancer Glaucoma Paternal Grandmother SOCIAL HISTORY Social History Tobacco Use Smoking status: Never Smokeless tobacco: Never Vaping Use Vaping Use: Never used Substance Use Topics Alcohol use: No Drug use: No REVIEW OF SYSTEMS Abdomen: No abdominal pain, nausea, vomiting, diarrhea, or constipation. No bloating, early satiety, indigestion, or increased flatulence. Bladder: No dysuria, gross hematuria, urinary frequency, urinary urgency, or incontinence. Breast: No breast lumps, nipple d/c, overlying skin changes, redness or skin retraction. Allergies and current medication updated:Yes EXAM: BP 114/76 Ht 5' 4 (1.63m) Wt 195 lb (88.5kg) LMP 09/11/2023 BMI 33.46 kg/(m2). GENERAL: pleasant, female in no apparent distress HEENT: Normocephalic, atraumatic, mucus membranes moist, and no lesions NECK: Supple, full range of motion, no adenopathy, and thyroid normal DERMATOLOGY: Normal, without lesions, non-icteric, and non-hirsute BREAST: soft, non-tender, symmetric, no dominant mass, normal nipple-areolar complex, no lymphadenopathy, and no nipple discharge CHEST: Normal inspiratory effort ABDOMEN: soft, non-tender, and no masses PELVIC: external genitalia normal, normal Bartholin's glands, urethra, [place]'s glands, no vulvar lesions, no cervical lesions, good vaginal support, physiologic discharge present, normal appearing perineal body and perianal region BIMANUAL: uterus normal size, shape and consistency, no adnexal masses, and non-tender RECTOVAGINAL: deferred. NEURO: alert and oriented x3,exam grossly non-focal EXTREMITIES: normal ASSESSMENT/PLAN: 1) Health maintenance: pap done declines flu vaccine HPV vaccine: discussed, not interested 2) Contraception: combined hormonal contraceptives. Contraceptive options reviewed and information provided. 3) STD screening: Declined STD check. 4) Follow up one year or sooner as needed Mickey Alvarado MD [facility] 12-02-2022 Note HNO ID: [id number] Author: Allan Carvalho MD Service: ? Author Type: Physician Type: Progress Notes Filed: 12/02/2022 10:38 AM Note Text: Subjective: Patient status post a laparoscopic cholecystectomy on 11/23/2022 in [facility]. Please to say that she is feeling great tolerating a diet and her pain is significantly improved Objective:Blood pressure 126/80, pulse 112, temperature 36.6 ?C (97.9 ?F), last menstrual period 09/13/2022, SpO2 98 %. Incisions are clean without signs of infection Assessment: Aftercare Plan: At this point I want her to gradually increase her activity gradually increase her oral intake she can follow-up with me on an as-needed basis [facility] 12-02-2022 History of Present illness Narrative Subjective: Patient status post a laparoscopic cholecystectomy on 11/23/2022 in [facility]. Please to say that she is feeling great tolerating a diet and her pain is significantly improved Objective:Blood pressure 126/80, pulse 112, temperature 36.6 C (97.9 F), last menstrual period 09/13/2022, SpO2 98 %. Incisions are clean without signs of infection Assessment: Aftercare Plan: At this point I want her to gradually increase her activity gradually increase her oral intake she can follow-up with me on an as-needed basis documented in this encounter [facility] documented as of this encounter (statuses as of 12/02/2022) [facility]01-18-2023 NoteHNO ID: [id number] Author: Jose Whaley APRN.CRNA Service: Anesthesiology Author Type: Nurse Sensitized Paper Tester Type: Anesthesia Procedure Notes Filed: 11/23/2022 8:51 AM Note Text: ANESTHESIOLOGY PROCEDURE NOTE Airway General Information Procedure Start Time/Medication Administration: 11/23/2022 8:43 AM Patient location during procedure: OR Timeout Performed Pre-procedure: timeout performed Consent Obtained: Yes 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 Staffing DIRECTOR OF ARCHITECTURE: Jose Whaley APRN.DIRECTOR OF ARCHITECTURE Indications and Patient Condition Indications for airway management: anesthesia Preoxygenated: yes anesthesia circuit Method: sleep Cricoid Pressure: No Manual In-Line Stabilization: No Difficult Mask: No Final Airway Details Final airway type: endotracheal airway Final Endotracheal Airway: ETT Cuffed: yes Successful intubation technique: direct laryngoscopy Blade: Shawanda Blade size: #4 ETT size (mm): 7.0 Measured from: lips Measurement (cm): 20 Placement verified by: chest auscultation and capnometry Cormack-Lehane Classification: grade I - full view of glottis Number of attempts at approach: 1 Failed airway: no Unrecognized esophageal intubation: no Airway not difficult SIGNATURE: Jose Whaley APRN.CRNA PATIENT NAME: Eliana Alex Conrad DATE: November 23, 2022 TIME: 8:51 AM CSN: [id number] NoteHNO ID: [id number] Author: Allan Carvalho MD Service: ? Author Type: Physician Type: Progress Notes Filed: 10/17/2022 5:10 PM Note Text: HISTORY AND PHYSICAL Eliana Alex Conrad 1995 REFERRING PHYSICIAN: Cynthia Pop APRN.CNP CHIEF COMPLAINT: Consult (Right breast lump) HPI: Eliana is a 27 year old female with a complaint of right upper quadrant pain. The patient has had symptoms of right upper quadrant pain for 1 months. The symptoms have maintained, over the past 1 month. The pain does not radiate to the back. Food does aggravate her symptoms. Alleviating factors include: none. The patient was seen by the emergency room physician 2 weeks ago. February underwent a CT scan. These tests demonstrated cholelithiasis. The patient is referred for evaluation and treatment. The patient is being seen by me today at the request of Dr. Pop for my opinion and advice regarding Mass of upper outer quadrant of right breast Axillary lump, right Calculus of gallbladder with acute on chronic cholecystitis without obstruction (primary encounter diagnosis). SIGNIFICANT MEDICAL PROBLEMS: PAST MEDICAL HISTORY Diagnosis Date IBS (irritable bowel syndrome) OPERATIONS: PAST SURGICAL HISTORY Procedure Laterality Date EXCISION GANGLION WRIST DORSAL/VOLAR PRIMARY Right 05/17/2019 PAST SURGICAL HISTORY OF wisdom teeth removed CURRENT MEDICATIONS: Current Outpatient Medications Medication Sig Dispense Refill ondansetron orally disintegrating (ZOFRAN ODT) 4 mg disintegrating tablet DISSOLVE 1 (ONE) TABLET BY MOUTH EVERY 8 HOURS NEEDED FOR NAUSEA Desogestrel-Ethinyl Estradiol (ENSKYCE) 0.15-0.03 mg per tablet Take 1 tablet by mouth once daily. 84 tablet 4 glycopyrrolate (ROBINUL) 1 mg tablet 0.5 mg. No current facility-administered medications for this visit. ALLERGIES: Erythromycin, Seasonal Allergies, and Sulfa (Sulfonamide Antibiotics) PERSONAL HISTORY: Social History Tobacco Use Smoking status: Never Smokeless tobacco: Never Vaping Use Vaping Use: Never used Substance Use Topics Alcohol use: No Drug use: No FAMILY HISTORY: FAMILY HISTORY Problem Relation Age of Onset Hypertension Mother Diabetes Mother Heart Father Cancer Maternal Grandmother renal cancer Glaucoma Paternal Grandmother REVIEW OF SYMPTOMS: The review of systems data was entered by the nurse and reviewed by me Nursing Notes: Paradise Han RN 10/17/2022 3:37 PM Signed REVIEW OF SYSTEMS: General: The patient denies fatigue, denies weight loss, denies weight gain, denies feeling hot, and denies feelings of cold. Eyes: The patient denies glaucoma, denies eye injury/surgery, does not wear glasses or contacts. Ear/Nose/Throat: The patient denies allergies, denies hayfever, denies ear infections, and denies bloody noses. Cardiovascular: The patient denies chest pain, denies heart disease, denies high blood pressure,denies cardiac stent, denies prior heart attack, denies irregular heart beat, denies high cholesterol, denies poor circulation, denies heart failure, other cardiac issues, denies claudication, denies cold feet, denies peripheral arterial stent. Respiratory: The patient denies tuberculosis, denies pneumonia, denies frequent cough, denies pulmonary embolism, denies shortness of breath, and denies coughing up blood. Gastrointestinal: The patient denies difficulty swallowing, denies acid reflux, denies ulcers, denies vomiting, denies jaundice/hepatitis, NOTES gallbladder problems, denies black or tarry stools, denies hemorrhoids, denies bleeding from rectum, denies diverticulitis, denies constipation, denies diarrhea, denies loss of stool control, and denies hernias. Kidney/Bladder: The patient denies kidney stones, denies urine infections, and denies bloody urine. Skin: The patient denies a history of skin cancer, denies bleeding/changing moles, and denies a history of skin rash. Neurologic: The patient denies a history of epilepsy/convulsions, denies headaches, denies head/spinal injuries, and denies stroke/TIA. Psychiatric: The patient denies psychiatric medications, denies depression, and denies voices, denies substance abuse. Endocrine: The patient denies thyroid disorders, denies diabetes, and denies hormonal problems. Hematologic: The patient denies a history of bruising, denies bleeding, and denies anemia, denies blood clots. Infections: The patient denies a history of measles and mumps, denies rheumatic fever, and denies sexually transmitted diseases. Musculoskeletal: The patient denies back pain/injury, denies back problems, denies sciatica, denies knee/foot trouble, denies arthritis, or denies gout. When was patient's last Mammogram screening? N/A Last Colonoscopy: none Paradise Han RN PHYSICAL EXAMINATION: General: The patient is 27 year old female, well nourished, well hydrated in no acute distress. The patient is orient (more content not included)... [facility]12-06-2022 Miscellaneous Notes* Telephone Encounter - Sherlyn Granda RN - 10/11/2022 10:59 AM EST Patient notified and voiced understanding of below. Transferred to [facility] to schedule with general surgery. Sherlyn Granda RN * Telephone Encounter - Cynthia Pop APRN.CNP - 10/11/2022 10:49 AM EST Please notify pt - the breast ultrasound was normal. I recommend that she see general surgery for consult for further evaluation of nodules. Consult order placed. Please assist making appointment. Cynthia Pop APRN.CNP documented in this encounter[facility] History of Present illness Narrative* Dedra Orellana RDMS - 10/11/2022 8:30 AM EST Radiology Service Progress Note PATIENT NAME: Eliana Conrad DATE OF SERVICE: October 11, 2022 TIME: 9:10 AM PATIENT IDENTITY VERIFICATION COMPLETED USING TWO (2) IDENTIFIERS: Name and Date of confirmedby patient verbally. FALL SCREENING: Has the patient had 2 falls in the last year or 1 fall with injury or currently using an Ambulatory Assistive Device (Walker, Cane, Wheelchair, Crutches, etc.)? No PATIENT GENDER DATA: Female. status: : No status: NO. PATIENT RELEVANT IMPLANT DATA REVIEWED: Not Applicable RADIOLOGY DEPARTMENT: Ultrasound PERIPHERAL IV DATA: Not applicable SIGNED BY: Dedra Orellana RDMS October 11, 2022 9:10 AM documented in this encounterAultman Hospital12-02-[facility] History of Present illness Narrative* Cynthia Pop APRN.CNP - 10/07/2022 7:54 AM EST Substation Engineer offered: Patient declines. Eliana is a 27 year old who presents for an annual gynecologic exam with complaints, lump toright upper arm and right upper breast Has had arm lump x 1 year. Started marble size and now aboutdouble in size. Noticed lump in breast one month ago. Lumps become tender if she checks it often orif she moves her arm a lot. No recent vaccines. Menses: cycles every 28 days and 4-5 days of flow. Contraception: combined hormonal contraceptives HPV vaccine: No Last Pap: 09/01/2020 normal HPV: N/A Last mammogram: never Sexually active: Yes History of STDS: None Patient concerns for STD exposure: No. Partner of 3 years Pain with intercourse: No Postcoital bleeding: No Documentation from previous visit of 09/29/2021 was copied and pasted, documentation has been reviewed and edited as necessary for today's visit. OB History T0 L0 SAB0 IAB0 Ectopic0 Multiple0 Live Births0 Institution Librarian History LMP: 09/14/2021, Having periods Age at Menarche: Age at First : Age at Menopause: Institution Librarian History Comments: Sexual Activity: Yes; Male Contraception: Pill PAST MEDICAL HISTORY Diagnosis Date IBS (irritable bowel syndrome) PAST SURGICAL HISTORY Procedure Laterality Date EXCISION GANGLION WRIST DORSAL/VOLAR PRIMARY Right 05/17/2019 PAST SURGICAL HISTORY OF wisdom teeth removed FAMILY HISTORY Problem Relation Age of Onset Hypertension Mother Diabetes Mother Heart Father Cancer Maternal Grandmother renal cancer Glaucoma Paternal Grandmother SOCIAL HISTORY Social History Tobacco Use Smoking status: Never Smokeless tobacco: Never Vaping Use Vaping Use: Never used Substance Use Topics Alcohol use: No Drug use: No REVIEW OF SYSTEMS Abdomen: No abdominal pain, nausea, vomiting, diarrhea, or constipation. No bloating, early satiety, indigestion, or increased flatulence. Bladder: No dysuria, gross hematuria, urinary frequency, urinary urgency, or incontinence. Breast: See HPI - lump right breast. No nipple d/c, overlying skin changes, redness or skin retraction. Allergies and current medication updated:Yes EXAM: BP 122/78 Ht 5' 4 (1.63m) Wt 193 lb (87.5kg) LMP 09/13/2022 BMI 33.11 kg/(m^2). GENERAL: pleasant, female in no apparent distress HEENT: Normocephalic, atraumatic, mucus membranes moist, and no lesions NECK: Supple, full range of motion, no adenopathy, and thyroid normal DERMATOLOGY: Normal, without lesions, non-icteric, and non-hirsute BREAST: soft, non-tender, symmetric, normal nipple-areolar complex, no nipple discharge. RT breast - sub cm lump between 10-11 o'clock located 10 cm from nipple and 1 cm lump to right axilla. CHEST: Normal inspiratory effort ABDOMEN: soft, non-tender, and no masses PELVIC: external genitalia normal, normal Bartholin's glands, urethra, [place]'s glands, no vulvar lesions, no cervical lesions, good vaginal support, physiologic discharge present, normal appearing perineal body and perianal region BIMANUAL: uterus normal size, shape and consistency, no adnexal masses, and non-tender RECTOVAGINAL: deferred. NEURO: alert and oriented x3,exam grossly non-focal EXTREMITIES: normal ASSESSMENT/PLAN: 1) Health maintenance: Pap/HPV up to date. Nutrition, exercise and routine health maintenance exams reviewed. HPV vaccine: discussed, not interested 2. Mass of upper outer quadrant of right breast - ICD9: 611.72, ICD10: N63.11 - US BREAST LTD RT - [facility] 3. Axillary lump, right - ICD9: 782.2, ICD10: R22.31 - US BREAST LTD RT - [facility] RT 4) Contraception: combined hormonal contraceptives. Contraceptive options reviewed and information provided. 5) STD screening: Declined STD check. 6) Follow up one year or sooner as needed Cynthia Pop APRN.CNP documented in this encounterAultman Hospital09-29-2022 Miscellaneous Notes* Telephone Encounter - Cecily Justin LPN - 08/04/2022 3:47 PM EDT Received call from [facility] requesting a 90 day Rx for Enskyce. Patient had yearly examm 09/26/2021 documented in this encounterAultman Hospital07-03-2022 Instructions* Patient Instructions* David Hernandez APRN.CNP - 05/08/2022 9:17 AM EDT How to Manage Common Symptoms Associated with COVID for Adults Fever- Fever is a temperature over 100.4 F and can occur when the body is fighting an infection. Tohelp treat a fever: Drink plenty of fluids and stay well hydrated. Eat small amounts of easy to digest food. Rest. Your body needs rest to recover, but getting up and moving around the house frequently is a good idea. You should try to continue doing your normal daily activities (bathing, toileting, grooming, cooking), though you will probably feel tired, and need to rest often. Avoid any heavy activity or exercise, as this will increase your body temperature. Dress in light clothing and stay covered in a light sheet. Keep the room temperature cool. Take a slightly warm (not cold or cool) bath, or apply damp washcloths to the forehead and wrists. Cough- Cough is a common symptom associated with COVID and can be bothersome. To help treat a cough: Stay well hydrated. Try warm water or tea with lemon and/or honey to help soothe the cough. Use a humidifier to add moisture to the air. Try a product with menthol, like a cough drop or a rub for your chest such as Vicks, which can helpreduce cough. Try cough drops. Avoid smoking and other strong odors or perfumes. Try breathing exercises to keep your lungs open and clear. Take a big deep breath through your noseand hold for 5 seconds before slowly releasing. Repeat frequently, while you are awake. Congestion- Runny nose or nasal congestion can occur with COVID. Treatment can help relieve symptoms: Try OTC nasal saline spray, or nasal saline rinse to relieve mucus congestion. Nasal strips can help keep nasal passages open, to increase airflow. Elevating your head with an extra pillow in bed can help reduce congestion. Using a humidifier can increase moisture in the air, and make breathing easier. Sore Throat- Another common symptom with COVID, can be managed at home by: Stay well hydrated. Gargle with salt water mix teaspoon salt with 1 cup of warm water and gargle. This helps to loosen mucus in the back of the throat and may reduce discomfort. Try ice chips, popsicles or lozenges to soothe the throat. Nausea/Vomiting/Diarrhea- These are common symptoms, and staying hydrated is most important. If you are nauseous or vomiting, start with small sips of water every 10-15 minutes and increase astolerated. You can try sucking an ice cube too. If tolerating, you can try pedialyte or Gatorade, or flat sprite or yodit-mercedes. Start slowly and increase as you are able to. Instead of meals, try smaller, more frequent snacks. Try eating bland foods like crackers, toast, rice, and applesauce. Avoid spicy, greasy or fried foods and dairy containing foods. Even if you aren't feeling hungry due to lack of smell or taste, it is important to try to take in some food when you are able. After drinking and eating, rest in an upright position for up to two hours as needed to help decrease nauseous feelings. Try closing your eyes, avoid moving and watching TV. Avoid strong odors that can make you feel more nauseated. When to seek emergency medical attention Look for emergency warning signs for COVID-19. If having any of these symptoms, seek emergency medical care immediately: Trouble breathing Persistent pain or pressure in the chest New confusion Inability to wake or stay awake Bluish lips or face *This list is not all possible symptoms. Please call your medical provider for any other symptoms that are severe or concerning to you. documented in this encounterAultman Hospital07-03-2022 History of Present illness Narrative* David Hernandez APRN.CNP - 05/08/2022 9:16 AM EDT Subjective HPI Nontoxic-appearing female presents urgent care chief complaint sore throat fever fatigue chills. Duration of symptoms 3 days. Associated symptoms listed above. Most predominant symptoms sore throat. Presents today for evaluation. Did take a home positive COVID-19 test. Denies any OTC medication usetoday. Denies any high fevers productive cough chest pain shortness of breath pleuritic pain hemoptysis decreased range of motion neck difficulty swallowing or trismus. Past medical history prescription medication use allergies reviewed. Denies chance of . .Patient presents with: Sore Throat: fever, had positive home test x 3 days PAST MEDICAL HISTORY Diagnosis Date IBS (irritable bowel syndrome) PAST SURGICAL HISTORY Procedure Laterality Date EXCISION GANGLION WRIST DORSAL/VOLAR PRIMARY Right 05/17/2019 PAST SURGICAL HISTORY OF wisdom teeth removed ALLERGIES Erythromycin, Seasonal Allergies, and Sulfa (Sulfonamide Antibiotics) MEDICATIONS glycopyrrolate (ROBINUL) 0.2 mg/mL injection Desogestrel-Ethinyl Estradiol (ENSKYCE) 0.15-0.03 mg per tablet Take 1 tablet by mouth once daily. glycopyrrolate (ROBINUL) 1 mg tablet Take 1 tablet every morning and 1/2 tablet every night with a full glass of water aluminum chloride (DRYSOL) 20 % external solution Apply to affected area daily at bedtime. Until improvement then use 1-2 times per week. triamcinolone acetonide (KENALOG) 0.1 % cream Apply 1 application to affected area twice daily. Apply to affected area. dicyclomine (BENTYL) 10 mg capsule Take 1 capsule by mouth four times daily as needed (abdominal cramping/diarrhea). FAMILY HISTORY Problem Relation Age of Onset Hypertension Mother Diabetes Mother Heart Father Cancer Maternal Grandmother renal cancer Glaucoma Paternal Grandmother Social History Tobacco Use Smoking status: Never Smoker Smokeless tobacco: Never Used Vaping Use Vaping Use: Never used Substance Use Topics Alcohol use: No Drug use: No BP 120/94 Pulse 100 Temp 37 C (98.6 F) Resp 21 Wt 85.9 kg (189 lb 6.4 oz) LMP 09/14/2021 SpO2 99% BMI 33.55 kg/m Hr 81 Review of Systems Constitutional: Positive for chills and malaise/fatigue. Negative for fever. HENT: Positive for congestion and sore throat. Negative for ear discharge, ear pain and sinus pain. Eyes: Negative for blurred vision, pain, discharge and redness. Respiratory: Negative for cough, hemoptysis, sputum production, shortness of breath, wheezing and stridor. Cardiovascular: Negative for chest pain. Gastrointestinal: Negative for abdominal pain, diarrhea, nausea and vomiting. Musculoskeletal: Positive for myalgias. Skin: Negative for itching and rash. Neurological: Negative for dizziness and headaches. Objective Physical Exam Constitutional: General: She is not in acute distress. Appearance: She is not diaphoretic. HENT: Head: Normocephalic. Jaw: No trismus, tenderness, swelling or pain on movement. Mouth/Throat: Lips: [place]. Mouth: Mucous membranes are moist. Pharynx: Oropharynx is clear. Posterior oropharyngeal erythema present. No pharyngeal swelling, oropharyngeal exudate or uvula swelling. Eyes: Conjunctiva/sclera: Conjunctivae normal. Pupils: Pupils are equal, round, and reactive to light. Cardiovascular: Rate and Rhythm: Normal rate and regular rhythm. Heart sounds: Normal heart sounds. Pulmonary: Effort: Pulmonary effort is normal. No tachypnea, accessory muscle usage or respiratory distress. Breath sounds: Normal breath sounds. No stridor. Abdominal: Palpations: Abdomen is soft. Tenderness: There is no abdominal tenderness. Musculoskeletal: Cervical back: Normal range of motion and neck supple. No rigidity or tenderness. Lymphadenopathy: Cervical: No cervical adenopathy. Skin: General: Skin is warm and dry. Neurological: Mental Status: She is alert and oriented to person, place, and time. ASSESSMENT/PLAN: 1. Pharyngitis, unspecified etiology - ICD9: 462, ICD10: J02.9 (primary diagnosis) - STREP A MOLECULAR (POC) 2. Viral illness - ICD9: 079.99, ICD10: B34.9 - 2019 CORONAVIRUS 3. Suspected COVID-19 virus infection - ICD9: V01.79, ICD10: Z20.822 - 2019 CORONAVIRUS Strep test negative. Will order PCR COVID-19 testing. Supportive therapies discussed. Home quarantining recommended. Patient will follow up with primary care provider as needed. Patient was instructed to immediately proceed to emergency room for any new, worsening, or symptoms lasting longer than an ticipated. The patient's clinical presentation is otherwise unremarkable at this time. Based on exam and clinical finding, the patient is stable for discharge. Plan of care was discussed with patient. Patient verbalizes understanding and agrees to plan of care. This note was generated using [employer] software. It may contain errors in wording, punctuation, or spelling. David Hernandez APRN.JHON\ documented in this encounterAultman Hospital06-29-2011 History of Past illness Narrative* Problem Noted Date Resolved Date Cellulitis and abscess of toe, unspecified 05/0404/10/2018 Onychia and paronychia of toe 05/04/2011 Other acne 12/15/2008 04/10/2018 documented as of this encounter (statuses as of 05/08/2022) [facility] of [facility] illness Narrative* Problem Noted Date Resolved Date Cellulitis and abscess of toe, unspecified 05/0404/10/2018 Onychia and paronychia of toe 05/04/2011 Other acne 12/15/2008 04/10/2018 documented as of this encounter (statuses as of 08/05/2022) [facility] Narrative* Problem Noted Date Resolved Date Cellulitis and abscess of toe, unspecified 05/0404/10/2018 Onychia and paronychia of toe 05/04/2011 Other acne 12/15/2008 04/10/2018 documented as of this encounter (statuses as of 10/07/2022) [facility] Narrative* Problem Noted Date Resolved Date Cellulitis and abscess of toe, unspecified 05/0404/10/2018 Onychia and paronychia of toe 05/04/2011 Other acne 12/15/2008 04/10/2018 documented as of this encounter (statuses as of 10/11/2022) [facility] of [facility] illness Narrative* Problem Noted Date Diagnosed Date Resolved Date Cellulitis and abscess of toe, unspecified 05/04/2011 04/10/2018 Onychia and paronychia of toe 05/04/2011 04/10/2018 Other acne 12/15/2008 04/10/2018 documented as of this encounter (statuses as of 09/10/2023) [facility] note* Diagnosis Pharyngitis, unspecified etiology- Primary Viral illness Unspecified viral infection, in conditions classified elsewhere and of unspecified site Suspected COVID-19 virus infection documented in this encounter [facility]* Diagnosis Surveillance for control, oral contraceptives Surveillance of previously prescribed contraceptive pill [facility]* Diagnosis Encounter for gynecological examination with abnormal finding- Primary Routine gynecological examination Mass of upper outer quadrant of right breast Axillary lump, right Surveillance for control, oral contraceptives Surveillance of previously prescribed contraceptive pill [facility] this [facility]* Diagnosis Mass of upper outer quadrant of right breast- Primary Axillary lump, right [facility]* Diagnosis Aftercare- Primary Unspecified aftercare documented [facility] this encounter [facility]* Diagnosis Mass of upper outer quadrant of right breast Axillary lump, right documented in this encounter [facility] for referral (narrative)* Diagnostic Procedure Only (Routine) - Pending Review Specialty Diagnoses / Procedures Referred By Jordanaac t Referred To Contact [facility] Diagnoses Mass of upper outer quadrant of right breast Axillary lump, right Procedures [facility] RT DIAGNOSTIC MAMMOGRAPHY COMPUTER-AIDED DETCJ Cynthia Gutierrez APRN.APPEALS AND GENERALIST CLERK [address] [place] [address] [facility] [address] [place] [address] Referral ID Status Reason Start Date Expiration Date Visits Requested Visits Authorized [id number] Pending Review Auto-Generat ed Referral 10/07/2022 11/06/2023 1 1 * Diagnostic Procedure Only (Routine) - Authorized Specialty Diagnoses / Procedures Referred By Blanquita t Referred To Contact [facility] Diagnoses Mass of upper outer quadrant of right breast Axillary lump, right Procedures US BREAST LTD RT US BREAST UNI REAL TIME WITH IMAGE LIMITED Cynthia Pop APRN.APPEALS AND GENERALIST CLERK [address] [place] [address] [facility] [address] [place] [address] Referral ID Status Reason Start Date Expiration Date Visits Requested Visits Authorized [id number] Authorized Auto-Generat ed Referral 10/07/2022 11/06/2023 1 1 [facility] for referral (narrative)* Diagnostic Procedure Only (Routine) - Closed Specialty Diagnoses / Procedures Referred By Contac t Referred To Contact [facility] Diagnoses Mass of upper outer quadrant of right breast Axillary lump, right Procedures US BREAST LTD RT US BREAST UNI REAL TIME WITH IMAGE LIMITED Cynthia Pop APRN.APPEALS AND GENERALIST CLERK [address] [place] [address] [facility] [address] [place] [address] Referral ID Status Reason Start Date Expiration Date V isits Requested Visits Authorized [id number] Closed Auto-Generate d Referral 10/07/2022 11/06/2023 1 1 [facility] Summary Purpose Family History No Family History Records FoundNo Family History Records FoundNo Family History Records Found Advance Directives No Advanced Directives Records FoundNo Advanced Directives Records FoundNo Advanced Directives Records Found Reason for Referral Specialty Diagnoses / Procedures Referred By Blanquita velasquez Referred To Contact General Surgery Diagnoses Mass of upper outer quadrant of right breast Axillary lump, right Procedures CONSULT TO GENERAL SURGERY OFFICE/OUTPATIENT [facility] 60-74 MINUTES Cynthia Pop APRN.CNP [address] [place] [address] Referral ID Status Reason Start Date Expiration Date Visits Requested Visits Authorized [id number] Authorized PCP Requested Referral 10/11/2022 10/11/2023 1 1 Additional Source Comments INFORMATION SOURCE (unrecogn ized section and content) DATE CREATED AUTHOR AUTHOR'S ORGANIZ ATION 11/29/2022 [facility] DATE CREATED AUTHOR AUTHOR'S ORGANIZ ATION 10/16/2023 [facility] Source Comments (unrecognize d section and content) In the event this informatio n is protected by the Federal Confidentiality of Alcohol and Drug Abuse Patient Records regulations: The Federal rules restrict any use of the information to criminally investigate or prosecute any alcohol or drug abuse patient.[facility] HospitalIn the event this information is protected by the Federal Confidentiality of Alcohol and Drug Abuse Patient Records regulations: The Federal rules restrict any use of the information to criminally investigate or prosecute any alcohol or drug abuse patient.[facility] HospitalIn the event this information is protected by the Federal Confidentiality of Alcohol and Drug Abuse Patient Records regulations: The Federal rules restrict any use of the information to criminally investigate or prosecute any alcohol or drug abuse patient.[facility] HospitalIn the event this information is protected by the Federal Confidentiality of Alcohol and Drug Abuse Patient Records regulations: The Federal rules restrict any use of the information to criminally investigate or prosecute any alcohol or drug abuse patient.[facility] HospitalIn the event this information is protected by the Federal Confidentiality of Alcohol and Drug Abuse Patient Records regulations: The Federal rules restrict any use of the information to criminally investigate or prosecute any alcohol or drug abuse patient.[facility] HospitalIn the event this information is protected by the Federal Confidentiality of Alcohol and Drug Abuse Patient Records regulations: The Federal rules restrict any use of the information to criminally investigate or prosecute any alcohol or drug abuse patient.[facility] Reason for Visit (unrecogniz ed section and content) Reason Onset Date Comments Refill Request 08/04/2022 Refill Request 08/05/2022 Reason Onset Date Comments Yearly Exam Radiology Mammogram 10/07/2022 at [facility] Reason Comments Orders Results Reason Comments Post Op Lap filippo Reason Comments Radiology US Specialty Diagnoses / Procedures Referred By Contac t Referred To Contact [facility] Diagnoses Mass of upper outer quadrant of right breast Axillary lump, right Procedures US BREAST LTD RT US BREAST UNI REAL TIME WITH IMAGE LIMITED Cynthia Pop APRN.APPEALS AND GENERALIST CLERK [address] [place] [address] [facility] [address] [place] [address] Referral ID Status Reason Start Date Expiration Date V isits Requested Visits Authorized [id number] Closed Auto-Generate d Referral 10/07/2022 11/06/2023 1 FOR RECORDS PERTAINING TO PATIENTS WHO ARE OR HAVE BEEN ENROLLED IN A CHEMICAL DEPENDENCY/SUBSTANCEABUSE PROGRAM, SOME INFORMATION MAY BE OMITTED. This clinical summary was aggregated from multiple sources. Caution should be exercised in using it in the provision of clinical care. This summary normalizes information from multiple sources, and as a consequence, information in this document may materially change the coding, format and clinical context of patient data. In addition, data may be omitted in some cases. CLINICAL DECISIONS SHOULD BE BASED ON THE PRIMARY CLINICAL RECORDS. [employer] provides no warranty or guarantee of the accuracy or completeness of information in this document.
== END | disposition home or self-care (01) ==
LOC: LAB 06:52
PROVIDERS: Referring Provider Ophthalmology; Visit Provider Ophthalmology
DX: H04.123 Dry eye syndrome of bilateral lacrimal glands (principal)
CPT/HCPCS: 36415

== ENCOUNTER 2024-03-11 11:23 | Emergency (ER) | payer BC, SELFPAY ==
[2024-03-11 11:23] VITALS: BP 173/93; PULSE 91; RESP 17; TEMP 36.2; O2SAT 98; BMI 34.3
--- NOTE | 2024-03-11 12:36 | EDS_ITS ---
HPI History of Present Illness Chief Complaint: Complaint Detail of Chief Complaint: Right flank pain yesterday. Recurred today. Informant: patient Onset/Context/Timing Onset: Today and Yesterday Context: Sudden Onset Timing: Continuous (Continuous since onset prior to arrival) and Intermittent (Yesterday) Quality: Pain Location: Right flank Current Severity: Moderate Maximum Severity: Moderate Worsened by: Cannot find a position of comfort Associated Symptoms Associated Symptoms: Nausea today and nausea and vomiting yesterday Narrative Narrative: Patient is a 29-year-old female. Patient is on control pills. Last normal menses 2 weeks ago. There is a family history cholelithiasis. Patient denies history cholelithiasis. Patient was seen at urgent care and states there was no blood in her urine. At that time apparently she did not have pain. She denies fever or chills. She reports nausea and vomiting yesterday and nausea today. She does report frequency. Denies dysuria. She has not noted blood in her urine. She denies headache, visual, ocular auditory symptoms. She denies cardiac or respiratory symptoms. There is no history of trauma. Prior similar symptoms: No Recent Illness/Hospitalization: No PFSH PFSH Home Medications Control 1 tab PO DAILY 01/21/19 [History Last Taken Unknown] ondansetron 4 mg disintegrating tablet 4 mg PO Q8H PRN PRN Nausea #10 tabs 09/24/22 [Rx Last Taken Unknown] hydrocodone-acetaminophen 5-325mg 5mg-325mg 1 tab PO Q6H PRN PRN Pain 3 days #10 TABLETS 03/11/24 [Rx Last Taken Unknown] naproxen 500 mg tablet 500 mg PO BID #14 tabs 03/11/24 [Rx Last Taken Unknown] Allergy/AdvReac Type Severity Reaction Status Date / Time Sulfa (Sulfonamide Allergy Rash Verified 01/21/19 08:55 Antibiotics) Surgical History H/O excision of ganglion cyst Social History (Updated 03/11/24 @ 12:[address] Angel Bustos MD) Smoking Status: Never smoker substance use type: does not use ROS ROS ED Constitutional Constitutional ED: Denies chills, fever(s), subjective, sweats or weight loss Eyes Eyes: Denies blurry vision, change in vision or diplopia ENT ENT ED: Denies ear pain, rhinorrhea or sore throat Cardiovascular Cardiovascular: Denies chest pain, orthopnea or palpitations Respiratory/Chest Respiratory/Chest: Denies cough, dyspnea, dyspnea on exertion or orthopnea Gastrointestinal Gastrointestinal: Denies abdominal pain, constipation, diarrhea, melena or nausea Genitourinary Genitourinary ED: Reports urinary frequency; Denies dysuria or hematuria Musculoskeletal Musculoskeletal: Denies arthralgias, back pain or myalgias Integumentary Denies rash Neurologic Neurologic: Denies headache(s) or paresthesias Hematologic/Lymphatic Hematologic/Lymphatic: Reports systems reviewed and no addt'l complaints, except as documented EXAM Physical Exam Const Vital Signs: 03/11/24 11:23 Temperature 97.2 F L Temperature Source Temporal Pulse Rate 91 Respiratory Rate 17 Blood Pressure 173/93 H Blood Pressure Mean 119 Pulse Ox 98 Oxygen Delivery Method Room Air Positive well nourished, well developed and obese General Appearance ED: well developed; Negative for NAD or pallor Nutritional Appearance: obese HEENT Reports moist mucous membranes HEENT Narrative: Head is atraumatic normocephalic. Ears normal. Eyes PERRL and EOMs intact bilaterally General Eye ED: Negative for pale conjunctiva or scleral icterus Neck no lymphadenopathy, supple and no JVD Chest Wall inspection of chest normal and palpation of chest normal Resp normal respiratory effort and clear to auscultation bilaterally Cardio regular rate, regular rhythm, S1 normal heart sound, S2 normal heart sound and no murmurs GI normal to inspection, nondistended, normoactive bowel sounds, non-tender, non- distended and no masses; Negative for hepatosplenomegaly Back/Spine no CVA tenderness Extremity normal to inspection Neuro oriented x3 and CN's II-XII intact bilaterally Sensorium / Orientation: alert Psych mental status grossly normal Skin no rashes or lesions noted, no wounds and skin turgor normal General Skin Exam: Negative for jaundice or pallor MDM MDM MDM Narrative Medical decision making narrative: Patient presents with right flank pain now radiating anteriorly with frequency. Suspect patient has ureteral stone. Will obtain UA to assess for infection. CBC and BMP to assess white count and renal function. Serum was test was obtained. She was treated with IV Toradol for her pain and Zofran for her nausea. Differential diagnosis is flank pain of unknown etiology, pyelonephritis, obstructing ureteral stone. Lab Data Attestation: I reviewed the patient's lab results. Lab results narrative: White count is upper end of normal. There is no shift. H&H is normal. Basic metabolic panel is marked for a creatinine of 1.34 with an estimated GFR 50. Urine is clean. Labs: Laboratory Results - last 24 hr 03/11/24 13:08 WBC 10.7 RBC 4.96 Hgb 13.0 Hct 40.7 MCV 82.1 MCH 26.2 L MCHC 31.9 L RDW Std Deviation 38.4 RDW Coeff of Casie 13.1 Plt Count 255 MPV 10.6 Immature Gran % (Auto) 0.300 Neut % (Auto) 78.5 H Lymph % (Auto) 13.9 L Cavalier % (Auto) 6.5 Eos % (Auto) 0.3 Baso % (Auto) 0.5 Absolute Neuts (auto) 8.4 H Absolute Lymphs (auto) 1.48 Nucleated RBC % 0 Sodium 139 Potassium 3.4 L Chloride 107 Carbon Dioxide 29.0 Anion Gap 3 L BUN 9 Creatinine 1.34 H Estim Creat Clear Calc 68.23 Est GFR (MDRD) Af Amer 61 Est GFR (MDRD) Non-Af 50 L BUN/Creatinine Ratio 6.7 L Glucose 95 Calcium 8.7 Serum , Qual NEGATIVE Urine Color Yellow Urine Clarity Sl. Cloudy Urine pH 6.5 Ur Specific [place] 1.010 Urine Protein Negative Urine Glucose (UA) Normal Urine Ketones Negative Urine Occult Blood Negative Urine Nitrite Negative Urine Bilirubin Negative Urine Urobilinogen Normal Ur Leukocyte Esterase Negative Urine RBC 0 SEEN Urine WBC 0 SEEN Ur Squamous Epith Cells 0-5 SEEN Urine Bacteria 0 SEEN Urine Mucus 0 SEEN Radiography Diagnostic Testing: Clinical Impression(s) from Imaging Studies Abdomen/Pelvis CT 03/11/24 13:47 IMPRESSION: 2 mm calculus at the right ureterovesical junction causing mild degree of right hydronephrosis and engorgement of the right kidney. Electronically Signed: Navarro Trejo MD at 14:28 EDT , CT of the abdomen pelvis without contrast reveals enlarged right kidney with hydroureter. There is a small stone at the right UVJ. Awaiting formal read by radiologist. Discharge Plan Triage Chief Complaint: Complaint ED Provider: Angel Bustos Dx/Rx/DC Orders Clinical Impression: Hydronephrosis with urinary obstruction due to ureteral calculus, Nausea & vomiting Instructions: ED Kidney Stone with Pain Prescriptions: New hydrocodone-acetaminophen [hydrocodone-acetaminophen] 5-325 mg tablet 1 tab PO Q6H PRN PRN (Reason: Pain) 3 Days Qty: 10 0RF naproxen 500 mg tablet 500 mg PO BID Qty: 14 0RF No Action Control 1 tab PO DAILY ondansetron [ondansetron] 4 mg tablet,disintegrating 4 mg PO Q8H PRN PRN (Reason: Nausea) Qty: 10 0RF Primary Care Provider: Care Physician,No Primary Referrals: Rossy Ordonez MD [Med Staff - Active Staff] - 3-5 Days Care Physician,No Primary [Primary Care Provider] - Disposition Disposition: Home, Self Care
[2024-03-11] MEDS: 0.9% Normal Saline (1000mL) 1,000 ML 250 ML IV (13:03)
[2024-03-11] MEDS: Ketorolac 15 MG/ML Vial IV (13:03)
[2024-03-11] MEDS: Ondansetron 4 MG/2 ML Vial IV (13:04)
[2024-03-11 13:15] LABS: Bacteria 0 SEEN /hpf (None Seen); Mucous, Urine 0 SEEN /hpf (<or=2+); Red Blood Cells-Urine 0 SEEN /hpf (0-5); White Blood Cells 0 SEEN /hpf (0-5)
[2024-03-11 13:16] LABS: Absolute Lymphocyte Count 1.48 X10^3/uL (0.83-4.51); Absolute Neutrophil Count 8.4 X10^3/uL (2.0-7.7); Basophil# 0.05 X10^3/uL; Basophil% 0.5 % (0-1); Eosinophil# 0.03 X10^3/uL; Eosinophils% 0.3 % (0-5); Hematocrit 40.7 % (37-47); Lymphocyte # 1.48 X10^3/ul (0.83-4.51); Lymphocyte % 13.9 % (19-41); Mean Corp Hgb Conc 31.9 g/dL (32-36); Mean Corpuscular Hgb 26.2 pg (27.0-32.0); Mean Corpuscular Volume 82.1 fL (81-99); Mean Platelet Vol. 10.6 fl (6.2-12.0); Monocyte# 0.69 X10^3/uL; Monocyte% 6.5 % (0-10); NRBC Flagged by Analyzer 0 % (0-5); Neutrophil # 8.38 X10^3/uL (2.7-7.7); Neutrophil % 78.5 % (47-70); Platelet Count 255 K/mm3 (150-450); RBC Distribution Width CV 13.1 % (11.6-14.6); RBC Distribution Width SD 38.4 fl (35.1-43.9); Red Blood Count 4.96 M/mm3 (4.2-5.4); White Blood Count 10.7 K/mm3 (4.4-11.0)
[2024-03-11 13:18] LABS: Color, Urine Yellow (Yellow); Glucose, Dipstick Normal (Normal); Ketone-Dipstick Negative (Negative); Leukocyte Esterase-Dipstick Negative /ul (Negative); Nitrite-Dipstick Negative (Negative); Occult Blood-Urine Negative /ul (Negative); Protein-Dipstick Negative (Negative); Urine Bilirubin Dipstick Negative (Negative); Urine Clarity Sl. Cloudy (Clear); Urine Urobilinogen Normal (Normal); Urine pH 6.5 (5.0 - 8.0)
[2024-03-11 13:24] LABS: Internal QC Validated? YES +Cl - CLEAR BKGD; Pregnancy, Serum, hCG Quali. NEGATIVE Negative
[2024-03-11 13:30] LABS: Anion Gap 3 (5-15); BUN 9 mg/dL (7-18); BUN/Creat Ratio 6.7 RATIO (10-20); Calcium,Total 8.7 mg/dL (8.5-10.1); Chloride 107 mmol/L (98-107); Creatinine, Serum 1.34 mg/dL (0.55-1.02); EST Glomerular Filtration Rate 50 mL/min (>60); Est Glom Filt Rate - Afr Amer 61 mL/min (>60); Estimated Creatinine Clearance 68.23 ml/min; Glucose 95 mg/dL (74-106); Potassium 3.4 mmol/L (3.5-5.1); Sodium Level 139 mmol/L (136-145)
--- NOTE | 2024-03-11 13:47 | CT_ITS ---
STUDY: CT ABDOMEN AND PELVIS WITHOUT CONTRAST REASON FOR EXAM: Female, 29 years old. Kidney Stone RADIATION DOSAGE (If Supplied By Facility): CTDIvol = ( 14.42 ) mGy, DLP = ( 738.44 ) mGycm TECHNIQUE: Transaxial images were obtained from the dome of the diaphragm to the symphysis pubis without oral contrast, and without intravenous contrast. Sagittal and coronal images were reconstructed. Individualized dose optimization techniques were used for this CT. COMPARISON: Comparison is made with prior study dated September 24, 2022. FINDINGS: The visualized lung bases are unremarkable. The visualized portions of the heart are within normal limits. Normal liver. There are surgical clips in the gallbladder fossa consistent with a prior cholecystectomy. Normal spleen. Normal pancreas. Normal bilateral adrenal glands. There is engorgement of the right kidney. Mild degree of right hydronephrosis due to a 2 mm calculus at the right ureterovesical junction. Mild left hydronephrosis. Normal visualized stomach. Normal small intestine. There are scattered colonic diverticula consistent with diverticulosis. The appendix is visualized and appears normal. Stable small lymph nodes in the root of the mesentery. Normal abdominal aorta. Normal inferior vena cava. Normal retroperitoneum. Normal urinary bladder. Normal abdominal wall. Loss of the normal lumbar lordosis. CT/Abdomen/Pelvis without Cont IMPRESSION: 2 mm calculus at the right ureterovesical junction causing mild degree of right hydronephrosis and engorgement of the right kidney. Electronically Signed: Navarro Trejo MD at 14:28 EDT ,
[2024-03-11 14:00] LABS: Squamous Epithelial Cells - UA 0-5 SEEN /hpf (5-10)
[2024-03-11 14:48] VITALS: BP 137/76; PULSE 69; RESP 16; TEMP 36.7; O2SAT 98
== END 2024-03-11 14:49 | disposition home or self-care (01) ==
PROVIDERS: Emergency Provider Emergency Medicine; Visit Provider Emergency Medicine
DX: N13.2 Hydronephrosis with renal and ureteral calculous obstruction (principal); E66.9 Obesity, unspecified; Z68.34 Body mass index [BMI] 34.0-34.9, adult; Z84.1 Family history of disorders of kidney and ureter
CPT/HCPCS: 74176; 80048; 81001; 84703; 85025; 96361; 96374; 96375; 99283; J7030; J2405

== ENCOUNTER → 2024-05-21 | Outpatient (CLI) | payer BC, SELFPAY ==
[2024-05-21 18:16] LABS: SERUM TEARS COLLECTION SPECIMEN PROCESSED
== END | disposition home or self-care (01) ==
LOC: LAB 16:02
PROVIDERS: Referring Provider Ophthalmology; Visit Provider Ophthalmology
DX: Z79.899 Other long term (current) drug therapy (principal)
CPT/HCPCS: 36415

== ENCOUNTER → 2024-11-08 | Outpatient (CLI) | payer SELFPAY ==
[2024-11-08 10:08] LABS: SERUM TEARS COLLECTION SPECIMEN PROCESSED
== END | disposition home or self-care (01) ==
PROVIDERS: Referring Provider Ophthalmology; Visit Provider Ophthalmology
DX: H04.123 Dry eye syndrome of bilateral lacrimal glands (principal)

== ENCOUNTER → 2025-05-02 | Outpatient (CLI) | payer SELFPAY ==
[2025-05-02 11:37] LABS: SERUM TEARS COLLECTION SPECIMEN PROCESSED
== END | disposition home or self-care (01) ==
LOC: LAB 09:33
PROVIDERS: Referring Provider Ophthalmology; Visit Provider Ophthalmology
DX: H04.123 Dry eye syndrome of bilateral lacrimal glands (principal)